=== PATIENT | male | born 1965 | race Caucasian/White ===

== ENCOUNTER 2018-03-19 23:49 | Emergency (ER) | payer OTHER ==
[2018-03-20] MEDS: DIPHTH/TET/ACEL PERTUSS (ADULT) 0.5 ML VIAL IM* (01:52)
[2018-03-20] MEDS: HYDROCODONE/APAP (5/325) TAB PO (02:48)
== END 2018-03-20 03:11 | disposition home or self-care (01) ==
LOC: FTE 23:49
DX: S71.111A Laceration without foreign body, right thigh, initial encounter (principal); I10 Essential (primary) hypertension; J45.909 Unspecified asthma, uncomplicated; W26.0XXA Contact with knife, initial encounter; Y92.9 Unspecified place or not applicable; Z23 Encounter for immunization
CPT/HCPCS: 12001; 90471; 90715; 99283-25

== ENCOUNTER 2018-03-29 22:34 | Emergency (ER) | payer SELFPAY, OTHER | END 2018-03-29 23:46 | disposition left against medical advice (07) | LOC: E/R 22:34 | DX: Z53.21 Procedure and treatment not carried out due to patient leaving prior to being seen by health care provider (principal) ==

== ENCOUNTER 2018-03-30 21:13 | Emergency (ER) | payer OTHER | END 2018-03-30 23:37 | disposition home or self-care (01) | LOC: E/R 21:13 | DX: Z48.02 Encounter for removal of sutures (principal); I10 Essential (primary) hypertension; J45.909 Unspecified asthma, uncomplicated | CPT/HCPCS: 99281 ==